=== PATIENT | male | born 1950 | race Caucasian/White ===

== ENCOUNTER 2020-06-25 21:45 | Emergency (ER) | payer MEDICARE, BC ==
[~2020-06-25] VITALS: Ht 177.8 cm; Wt 88.5 kg
[2020-06-26] MEDS ORDERED: GABAPENTIN300 MG PO (04:56)
[2020-06-26] MEDS ORDERED: PROPRANOLOL HCL10 MG PO (04:56)
[2020-06-26] MEDS ORDERED: LOSARTAN POTASS50 MG PO (04:57)
[2020-06-26] MEDS ORDERED: ATORVASTATIN CA40 MG PO (04:57)
[2020-06-26] MEDS ORDERED: ELIQUIS5 MG PO (04:57)
[2020-06-26] MEDS ORDERED: BUSPIRONE HCL15 MG PO (04:57)
[2020-06-26] MEDS ORDERED: ONDANSETRON ODT4 MG PO (04:58)
[2020-06-26] MEDS ORDERED: SERTRALINE HCL100 MG PO (04:58)
[2020-06-26] MEDS ORDERED: AMLODIPINE BESY10 MG PO (04:58)
== END 2020-06-26 00:34 | disposition home or self-care (01) ==
LOC: ED 21:45
DX: Z04.1 Encounter for examination and observation following transport accident (principal); I10 Essential (primary) hypertension; F41.9 Anxiety disorder, unspecified; F17.200 Nicotine dependence, unspecified, uncomplicated; Z79.899 Other long term (current) drug therapy
CPT/HCPCS: 99283

== ENCOUNTER 2020-06-26 04:46 | Emergency (ER) | payer MEDICARE, BC ==
[~2020-06-26] VITALS: Ht 177.8 cm; Wt 88.5 kg
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
[2020-06-26] MEDS ORDERED: PROPRANOLOL HCL10 MG PO (04:56)
[2020-06-26] MEDS ORDERED: GABAPENTIN300 MG PO (04:56)
[2020-06-26] MEDS ORDERED: LOSARTAN POTASS50 MG PO (04:57)
[2020-06-26] MEDS ORDERED: ATORVASTATIN CA40 MG PO (04:57)
[2020-06-26] MEDS ORDERED: BUSPIRONE HCL15 MG PO (04:57)
[2020-06-26] MEDS ORDERED: ELIQUIS5 MG PO (04:57)
[2020-06-26] MEDS ORDERED: AMLODIPINE BESY10 MG PO (04:58)
[2020-06-26] MEDS ORDERED: ONDANSETRON ODT4 MG PO (04:58)
[2020-06-26] MEDS ORDERED: SERTRALINE HCL100 MG PO (04:58)
== END 2020-06-26 06:52 | disposition home or self-care (01) ==
LOC: ED 04:46
DX: R11.2 Nausea with vomiting, unspecified (principal); I10 Essential (primary) hypertension; F41.9 Anxiety disorder, unspecified; F17.200 Nicotine dependence, unspecified, uncomplicated; Z79.899 Other long term (current) drug therapy
CPT/HCPCS: 80053; 85025; 96374; 96375; 99284-25; G0480; J2060; J2405; J7030